=== PATIENT | female | born 1990 | race Caucasian/White ===

== ENCOUNTER 2016-10-07 05:50 | Inpatient (IN) | payer BC ==
[~2016-10-07] VITALS: Ht 165.1 cm; Wt 122.0 kg
--- NOTE | ~2016-10-07 | FD ---
ADMIT: 10/07/2016 RM/LOC: 202 [facility] MR#: [id number] [address] [address] LUIS MACDONALD [address] [facility] [place] [place] [address] Final Diagnosis SEX: F AGE: 26 : 1990 ADMISSION DATE: 10/07/2016 DISCHARGE DATE: 10/09/2016 FINAL DIAGNOSIS: 1. Term intrauterine at 40 weeks and 1 day. 2. Transverse position. 3. Obesity. PROCEDURE: 1. External cephalic version. 2. Spontaneous vaginal delivery. Dorothy Gómez MD/ joan JOB #: [id number] CC: Amanda Aguila MD, Attending Physician Amanda Aguila MD, Family Physician
--- NOTE | ~2016-10-07 | OR ---
ADMIT: 10/07/2016 RM/LOC: 202 [facility] MR#: [id number] [address] LUIS MACDONALD [address] [place] [address] Operative/Delivery Room Report SEX: F AGE: 26 : 1990 SURGERY DATE: 10/07/2016 SURGEON: Amanda Aguila MD PROCEDURE: External cephalic version under ultrasound guidance. [employer] EQUIPMENT OPERATOR: Megha Ahn MD who was present for ultrasound guidance as well as with assistance due to the difficult nature due to patient's morbid obesity. FINDINGS: Transverse presentation converted to vertex. ANESTHESIA: Epidural. COMPLICATIONS: None. INDICATIONS FOR PROCEDURE: The patient is a 26-year-old 3, para 1-0-1- 1, who presented to Labor and Delivery at 40 and 1/7th weeks gestation by last menstrual period with estimated date of confinement 10/06/2016. The patient's had been complicated the last week of when she presented to the clinic for routine care and was noted to have infant in the breech presentation. After reviewing treatment options, the patient desired external cephalic version. Risks, benefits, and alternatives of procedure were discussed and she agreed to proceed. DESCRIPTION OF PROCEDURE: The patient had received an epidural for pain control as well as terbutaline. The patient was placed in the dorsal supine position. Under ultrasound guidance, multiple attempts were taken to convert the transverse to the vertex presentation. The heart tones remained reassuring at approximately 150s throughout the course of the procedure. After several attempts were performed, the did convert to vertex presentation. The patient tolerated the procedure well. Amanda Aguila MD/ maria m JOB #: [id number] CC: Amanda Aguila, Attending Physician Amanda Aguila, Family Physician
[2016-10-10] MEDS ORDERED: NIPPLECREAM TP (09:16)
[2016-10-10] MEDS ORDERED: COLACE-DPS100 MG PO (09:16)
[2016-10-10] MEDS ORDERED: TYLENOL #3 DPS1 TAB PO (09:16)
[2016-10-10] MEDS ORDERED: MOTRIN-DPS800 MG PO (09:16)
[2016-10-10] MEDS ORDERED: DERMOPLAST SPRA56 GM TP (09:17)
[2016-10-10] MEDS ORDERED: LAN-O-SOOTHE7 GM TP (09:17)
[2016-10-10] MEDS ORDERED: TUCKS1 EACH TP (09:17)
--- NOTE | 2016-11-01 09:14 | HP ---
ADMIT: 10/07/2016 RM/LOC: 202 [facility] MR#: [id number] [address] [address] LUIS MACDONALD [address] [place] [address] History and Physical SEX: F AGE: 26 : 1990 DATE OF SERVICE: REASON FOR ADMISSION: Planned external cephalic version with induction of labor if successful. INDICATIONS FOR HOSPITALIZATION: The patient is a 26-year-old 3, para 1-0-1-1, who presented to Labor and Delivery at 40-1/7th weeks' gestation by last menstrual period with estimated date of confinement 10/06/2016. The patient's had been otherwise uncomplicated. The patient at time of her last visit was noted to have the in the breech presentation. Due to this, the patient desired to proceed with attempted external cephalic version with induction of labor if successful. Risks, benefits, and alternatives of this procedure were discussed with the patient, and she wished to proceed. LABORATORY DATA: Blood type A positive, antibody screen negative, RPR nonreactive, rubella immune, group B Strep negative, HIV negative, Gonorrhea/Chlamydia negative, and hepatitis B surface antigen negative. PAST MEDICAL HISTORY: Noncontributory. PAST SURGICAL HISTORY: ACL and meniscus repair in 2005 and 2008. CURRENT MEDICATIONS: None. ALLERGIES: NO KNOWN MEDICAL ALLERGIES. FAMILY HISTORY: Father with diabetes. SOCIAL HISTORY: The patient is . She denies any alcohol, tobacco, or drug use. PHYSICAL EXAMINATION: VITAL SIGNS: On admission, blood pressure 125/66, pulse 77, temperature 96.7, respirations 18. GENERAL: The patient is alert and oriented, in no acute distress. HEART: Regular rate and rhythm without murmurs, gallops, or rubs. LUNGS: Clear to auscultation bilaterally. ABDOMEN: Soft, nontender, gravid. EXTREMITIES: No edema. No calf tenderness. ADMIT: 10/07/2016 RM/LOC: 202 [facility] MR#: [id number] [address] [address] LUIS MACDONALD [address] [place] [address] History and Physical SEX: F AGE: 26 : 1990 heart tones are in the 130s, with moderate variability and accelerations present. No contractions are noted on admission and ultrasound confirms transverse presentation. ASSESSMENT: 1. A 26-year-old 3, para 1-0-1-1, at 40-1/7th weeks' gestation. 2. Transverse presentation. Plan to proceed with external cephalic version under epidural anesthesia and if successful, we will proceed with Pitocin induction of labor and if unsuccessful, we would proceed with section. The risks, benefits, and alternatives of this procedure have been discussed with the patient, and she agrees to proceed. Amanda Aguila MD/ maria m JOB #: [id number] CC: Amanda Aguila, Attending Physician Amanda Aguila, Family Physician
--- NOTE | 2016-11-01 09:14 | OR ---
ADMIT: 10/07/2016 RM/LOC: 202 [facility] MR#: [id number] [address] [address] LUIS MACDONALD [address] [place] [address] Operative/Delivery Room Report SEX: F AGE: 26 : 1990 SURGERY DATE: 10/07/2016 SURGEON: Amanda Aguila MD NAME OF PROCEDURE: Spontaneous vaginal delivery. PREOPERATIVE DIAGNOSES: 1. Intrauterine at 40-1/7th weeks' gestation. 2. Transverse presentation converted to cephalic presentation by external cephalic version. POSTOPERATIVE DIAGNOSES: 1. Intrauterine at 40-1/7th weeks' gestation. 2. Transverse presentation converted to cephalic presentation by external cephalic version. FINDINGS: Liveborn male infant, scores 5 at 1 minute, 9 at 5 minutes, weight 7 pounds 1 ounce. ESTIMATED BLOOD LOSS: 150 mL. ANESTHESIA: Epidural. COMPLICATIONS: Precipitous delivery. INDICATIONS FOR PROCEDURE: The patient is a 26-year-old 3, para 1-0-1- 1, who presented to Labor and Delivery at 40-1/7th weeks' gestation by last menstrual period with estimated date of confinement of 10/06/2016. The patient's had been uncomplicated. The patient had been noted in the clinic with the infant in transverse presentation. After reviewing treatment options, the patient desired external cephalic version which was performed on the morning of 10/07/2016. The patient's labor was then induced with Pitocin. ADMIT: 10/07/2016 RM/LOC: 202 [facility] MR#: [id number] [address] [address] LUIS MACDONALD [address] [place] [address] Operative/Delivery Room Report SEX: F AGE: 26 : 1990 DESCRIPTION OF PROCEDURE: When the patient was approximately 4 cm dilated, artificial rupture of membranes was performed and a large amount of clear fluid was noted. Pitocin augmentation of labor was continued. The patient then progressed to completely dilated. She then precipitously delivered the . I entered the room after delivery of the infant. Cord blood was obtained. The cord was clamped and cut, and 20 units Pitocin were placed in IV bag to firm the uterus. The placenta then delivered intact spontaneously. The cervix was examined and was noted to be free of lacerations. The vaginal vault and perineum were examined, were also noted to be free of lacerations. The patient tolerated the procedure well. All sponge and needle counts were correct. The patient and her recovered in the room in stable condition. Amanda Aguila MD/ maria m JOB #: [id number] CC: Amanda Aguila, Attending Physician Amanda Aguila, Family Physician
== END 2016-10-09 12:03 | disposition home or self-care (01) | DRG 775 ==
LOC: BC 05:50 → 2LDRP 05:50
PROVIDERS: ADMIT Obstetrics & Gynecology
PROC: 10S0XZZ Reposition Products of Conception, External Approach (ICD-10-PCS; principal; 2016-10-07)
PROC: 10E0XZZ Delivery of Products of Conception, External Approach (ICD-10-PCS; principal; 2016-10-07)
PROC: 10907ZC Drainage of Amniotic Fluid, Therapeutic from Products of Conception, Via Natural or Artificial Opening (ICD-10-PCS; principal; 2016-10-07)
DX: O32.2XX0 Maternal care for transverse and oblique lie, not applicable or unspecified (principal); E66.9 Obesity, unspecified; O62.3 Precipitate labor; O48.0 Post-term pregnancy; O99.214 Obesity complicating childbirth; Z68.39 Body mass index [BMI] 39.0-39.9, adult; Z3A.40 40 weeks gestation of pregnancy; Z37.0 Single live birth